=== PATIENT | female | born 1945 | race Caucasian/White ===

== ENCOUNTER 2016-06-04 06:58 | Day surgery (SDC) | payer OTHER, MEDICARE ==
[~2016-06-04] VITALS: Ht 154.9 cm; Wt 70.8 kg
[~2016-06-04 06:58] MED LIST: ADVAIR HFA120 INHALA IH; AMOX TR-K CLV1 EAC4 PO; ANCEF,KEFZ1 GM/50 ML IV; ANCEF,KEFZ2 GM/100 M IV; APRESOLINE100 MG PO; APRESOLINE50 MG PO; ASPIR 8181 M1 PO; ASPIRIN325 MG; ASPIRIN81 M1 PO; ASPIRIN81 M2 PO; AUGMENTIN875 MG PO; BISAC-EVAC10 MG PR; CALCITRIOL0.25 MC1 PO; CALCITRIOL0.25 MCG PO; CARAFATE1 GM PO; CARVEDILOL12.5 MG PO; CARVEDILOL3.125 MG PO; CATAPRES0.1 MG PO; CATAPRES0.2 MG PO; CEFTIN500 MG PO; CEFUROXIME500 MG PO; CIPROFLOXACIN500 M1 PO; CLONIDINE HCL0.1 MG PO; CLONIDINE HCL0.2 MG PO; CLOPIDOGREL75 MG PO; COLACE100 MG PO; DAILY VITAMIN1 EAC4 PO; DILAUDID2 MG PO; DOCUSATE SODIU100 MG PO; ENDOCET 5-3251 EACH PO; EPOGEN,PRO10000 UNIT IV; Ecotrin PO; FAMOTIDINE20 MG PO; FERROUS SULFAT325 MG PO; FLAGYL500 MG PO; FUROSEMIDE20 MG PO; FUROSEMIDE40 MG PO; GLIPIZIDE10 M1 PO; GLIPIZIDE10 MG PO; HUMALOG MI100 UNIT/5 SC; HUMALOG MI100 UNITS/; HUMALOG MI100 UNITS/ SC; HUMALOG100 UNIT/1 SC; HUMALOG100 UNIT/2; HUMALOG100 UNIT/2 SQ; HYDRALAZINE HCL25 MG PO; HYDRALAZINE HCL50 MG PO; HYDROCODON-ACE1 EAC7 PO; HYDROXYZINE HCL50 MG PO; IMDUR120 MG PO; IRON325 M1 PO; IRON325 MG PO; ISOSORBIDE MON120 M1 PO; KLOR-CON SPRIN10 MEQ PO; LABETALOL HCL200 MG PO; LASIX20 MG PO; LASIX40 MG PO; LEVEMIR FL100 UNIT/1 SC; LEVEMIR FL100 UNIT/1 SQ; LEVEMIR FL100 UNITS/ SC; LISINOPRIL40 MG PO; LISINOPRIL5 MG PO; LO-DOSE ASPIRIN81 M1 PO; LOPRESSOR25 MG PO; LOPRESSOR50 MG PO; LOW DOSE ASPIRI81 M1 PO; Lasix PO; Levaquin PO; Lopressor PO; MAG-OXIDE400 MG PO; MAGNESIUM250 MG PO; MAGNESIUM400 M1 PO; METOPROLOL TAR100 MG; METOPROLOL TART25 MG PO; MORPHINE S10 MG/5 ML PO; NIFEDIPINE ER60 MG PO; NIFEDIPINE ER90 MG PO; NITROGLYCERIN0.4 MG SL; NITROSTAT0.4 MG SL; NORVASC10 MG; NOVOLOG 10100 UNITS/ SC; NOVOLOG PE100 UNITS/ SC; ONDANSETRON HCL4 MG PO; OXYBUTYNIN CHLOR5 MG PO; OXYCODONE HCL5 MG PO; OXYCODONE-ACET1 EACH PO; PANTOPRAZOLE SO40 MG PO; PLAVIX75 MG PO; POLYETHYLENE GL17 GM PO; POTASSIUM CHLO10 ME3 PO; PRAVACHOL40 MG PO; PRAVACHOL80 MG; PRAVACHOL80 MG PO; PRAVASTATIN SOD40 MG PO; PREDNISONE5 MG PO; PRINIVIL10 MG; PROAIR HFA8.5 GM IH; PROCRIT10000 UNI1 IV; PROCRIT10000 UNI1 SC; PROMETHAZINE HC25 M1 PO; PROTONIX40 MG PO; REGLAN10 MG PO; RENA-VITE RX T1 EACH PO; RENVELA800 MG PO; ROCALTROL0.25 MCG PO; ROCALTROL0.5 MCG; ROXICODONE5 MG PO; Rocaltrol PO; SENSIPAR30 MG PO; SODIUM BICARBO325 MG PO; ST. JOSEPH ASPI81 MG PO; STOOL SOFTENER100 MG PO; TYLENOL REGULA325 MG PO; TYLENOL325 M1; VANCOMYCIN HCL125 MG PO; VENTOLIN HFA18 GM IH; VITAMIN D2000 INTUN PO; VITAMIN D2000 UNI1 PO; VITAMIN D2000 UNIT PO; VITAMIN D22000 UNIT PO; VITAMIN D32000 UNI1 PO; VOLTAREN 1% GE100 GM TP; Vancocin Oral Solution PO; ZESTRIL40 MG PO; ZOFRAN ODT4 MG PO; ZYVOX600 MG PO
[2016-06-04] MEDS ORDERED: PROMETHAZINE HC25 M1 PO (07:21)
[2016-06-04] MEDS ORDERED: VITAMIN D31000 UNI2 PO (07:26)
[2016-06-04 07:55] LABS: POINT-OF-CARE METER ID UU13113696
== END 2016-06-04 10:16 | disposition home or self-care (01) ==
LOC: CATH 06:58
PROVIDERS: Surgery
DX: T82.858A Stenosis of other vascular prosthetic devices, implants and grafts, initial encounter (principal); Y83.2 Surgical operation with anastomosis, bypass or graft as the cause of abnormal reaction of the patient, or of later complication, without mention of misadventure at the time of the procedure; I12.0 Hypertensive chronic kidney disease with stage 5 chronic kidney disease or end stage renal disease; E11.22 Type 2 diabetes mellitus with diabetic chronic kidney disease; N18.6 End stage renal disease; Z99.2 Dependence on renal dialysis; E78.5 Hyperlipidemia, unspecified; K21.9 Gastro-esophageal reflux disease without esophagitis; Z86.73 Personal history of transient ischemic attack (TIA), and cerebral infarction without residual deficits; Z85.528 Personal history of other malignant neoplasm of kidney; Z98.61 Coronary angioplasty status; Z79.82 Long term (current) use of aspirin; Z79.4 Long term (current) use of insulin; E66.9 Obesity, unspecified; Z68.29 Body mass index [BMI] 29.0-29.9, adult; Z99.3 Dependence on wheelchair; Z88.2 Allergy status to sulfonamides; Z83.3 Family history of diabetes mellitus; Z82.49 Family history of ischemic heart disease and other diseases of the circulatory system; Z84.1 Family history of disorders of kidney and ureter; Z87.891 Personal history of nicotine dependence
CPT/HCPCS: 82948; C1725; C1769; C1894; J1644; J2250; J3010; S0020

== ENCOUNTER 2016-09-01 10:03 | Emergency (ER) | payer OTHER, MEDICARE ==
[~2016-09-01] VITALS: Ht 154.9 cm; Wt 72.6 kg
[~2016-09-01 10:03] MED LIST changes: +VITAMIN D31000 UNI2 PO
[2016-09-01 10:48] LABS: EOSINOPHIL (%) 1.6 % (0-5); EOSINOPHIL COUNT 0.2 K/uL (0-0.3); HEMATOCRIT 34.3 % (36.0-46.0); IMMATURE GRANULOCYTE COUNT 0.1 K/uL; INSTRUMENT ABS NEUTROPHIL CT 7.2 K/uL; LYMPHOCYTE COUNT 1.6 K/uL (1.0-2.8); MCH 31.3 PG (29.0-34.0); MCHC 32.4 G/DL (30.0-36.0); MCV 96.6 FL (83-99); MEAN PLAT.VOLUME 11.3 uM^3 (9.5-12.4); MONOCYTE (%) 8.7 % (3-12); MONOCYTE COUNT 0.9 K/uL (0-0.8); NEUTROPHIL (%) 72.2 % (45-76); NEUTROPHIL COUNT 7.2 K/uL (1.8-6.4); PLATELET COUNT 178 K/uL (156-360); RBC DIS.WIDTH-CV 13.6 % (11.8-14.6); RBC DIS.WIDTH-SD 48.4 % (39-53); RED BLOOD COUNT 3.55 M/uL (3.80-5.20)
[2016-09-01 10:59] LABS: CHLORIDE 102 mEq/L (99-109); SODIUM 141 mEq/L (136-147)
[2016-09-01 11:01] LABS: GLUCOSE 173 mg/dL (70-99)
[2016-09-01 11:03] LABS: ANION GAP 15 MEQ/L (2-14); TOTAL BILIRUBIN 0.5 mg/dL (0.0-1.0)
[2016-09-01 11:05] LABS: ALKALINE PHOSPHATASE 208 IU/L (3-129); GFR ESTIMATE (CALCULATED) 10 mL/min/
[2016-09-01 11:06] LABS: UREA NITROGEN (BUN) 56 mg/dL (9-23)
[2016-09-01] MEDS ORDERED: MEDROL DOSEPAK4 MG PO (12:31)
[2016-09-01] MEDS ORDERED: REGLAN10 MG PO (12:31)
[2016-09-01] MEDS ORDERED: FIORICET,ESG1 TABLET PO (12:31)
[2016-09-01 15:11] LABS: POINT-OF-CARE METER ID UU14100415
[2016-09-01 17:05] VITALS: BP 133/74
== END 2016-09-01 17:06 | disposition home or self-care (01) ==
LOC: EME 10:03
PROVIDERS: Emergency Medicine
DX: R51 Headache (principal); R11.2 Nausea with vomiting, unspecified; E11.22 Type 2 diabetes mellitus with diabetic chronic kidney disease; I12.0 Hypertensive chronic kidney disease with stage 5 chronic kidney disease or end stage renal disease; N18.6 End stage renal disease; Z99.2 Dependence on renal dialysis; E78.5 Hyperlipidemia, unspecified; Z86.73 Personal history of transient ischemic attack (TIA), and cerebral infarction without residual deficits; Z79.02 Long term (current) use of antithrombotics/antiplatelets; Z79.82 Long term (current) use of aspirin; Z79.4 Long term (current) use of insulin; Z87.891 Personal history of nicotine dependence
CPT/HCPCS: 70450; 80053; 82948; 85025; 99281; 99285; J1100; J1170; J2270; J2405; J2765; J7050

== ENCOUNTER 2016-12-08 15:38 | Emergency (ER) | payer OTHER, MEDICARE ==
[~2016-12-08] VITALS: Ht 154.9 cm; Wt 72.7 kg
[~2016-12-08 15:38] MED LIST changes: +FIORICET,ESG1 TABLET PO; +MEDROL DOSEPAK4 MG PO
[2016-12-08 17:47] LABS: HEMATOCRIT 39.3 % (36.0-46.0); MCH 31.3 PG (29.0-34.0); MCHC 31.8 G/DL (30.0-36.0); MCV 98.3 FL (83-99); MEAN PLAT.VOLUME 11.7 uM^3 (9.5-12.4); PLATELET COUNT 184 K/uL (156-360); RBC DIS.WIDTH-CV 14.5 % (11.8-14.6); RBC DIS.WIDTH-SD 52.5 % (39-53); WHITE BLOOD COUNT 9.9 K/uL (4.1-10.2)
[2016-12-08 17:58] LABS: CHLORIDE 102 mEq/L (99-109); POTASSIUM 4.1 mEq/L (3.7-5.4); SODIUM 141 mEq/L (136-147)
[2016-12-08 18:00] LABS: GLUCOSE 156 mg/dL (70-99)
[2016-12-08 18:01] LABS: ANION GAP 12 MEQ/L (2-14)
[2016-12-08 18:02] LABS: TOTAL BILIRUBIN 0.6 mg/dL (0.0-1.0)
[2016-12-08 18:04] LABS: ALKALINE PHOSPHATASE 148 IU/L (3-129); GFR ESTIMATE (CALCULATED) 9 mL/min/
[2016-12-08 18:05] LABS: UREA NITROGEN (BUN) 42 mg/dL (9-23)
[2016-12-08] MEDS ORDERED: ZOFRAN ODT4 MG PO (18:23)
[2016-12-08 20:30] VITALS: BP 180/56
== END 2016-12-08 20:45 | disposition home or self-care (01) ==
LOC: EME 15:38
PROVIDERS: Nurse Practitioner Family
DX: R11.2 Nausea with vomiting, unspecified (principal); Z87.442 Personal history of urinary calculi; Z86.73 Personal history of transient ischemic attack (TIA), and cerebral infarction without residual deficits; I25.2 Old myocardial infarction; E78.5 Hyperlipidemia, unspecified; E11.9 Type 2 diabetes mellitus without complications; Z99.2 Dependence on renal dialysis; Z79.4 Long term (current) use of insulin; I50.9 Heart failure, unspecified; Z87.891 Personal history of nicotine dependence; Z79.82 Long term (current) use of aspirin
CPT/HCPCS: 71020; 80053; 85027; 93005; 99281; 99284

== ENCOUNTER → 2016-12-24 | Outpatient (CLI) | payer OTHER, MEDICARE ==
[~2016-12-24] VITALS: Ht 154.9 cm; Wt 68.0 kg
[2016-12-24 14:46] LABS: HEMATOCRIT 37.8 % (36.0-46.0); MCV 96.9 FL (83-99)
[2016-12-24 14:51] LABS: POINT-OF-CARE METER ID UU14107333
[2016-12-24 15:01] LABS: ANION GAP 13 MEQ/L (2-14); CHLORIDE 99 MEQ/L (99-109); POTASSIUM 3.6 MEQ/L (3.7-5.4); SAMPLE HEMOLYSIS CHECK 0; SAMPLE ICTERIC CHECK 0; SAMPLE LIPEMIA CHECK 0; SODIUM 141 MEQ/L (136-147)
[2016-12-24 15:07] LABS: GFR ESTIMATE (CALCULATED) 12 mL/min/; GLUCOSE 155 mg/dL (70-99); UREA NITROGEN (BUN) 21 mg/dL (9-23)
== END | disposition home or self-care (01) ==
LOC: AMB 12-20 14:00 → OPR 12-20 15:30 → AMB 14:00
PROVIDERS: Specialist
PROC: 0DB68ZX Excision of Stomach, Via Natural or Artificial Opening Endoscopic, Diagnostic (ICD-10-PCS; principal; 2016-12-24)
DX: K29.70 Gastritis, unspecified, without bleeding (principal); E11.22 Type 2 diabetes mellitus with diabetic chronic kidney disease; N18.6 End stage renal disease; Z99.2 Dependence on renal dialysis; I25.10 Atherosclerotic heart disease of native coronary artery without angina pectoris; I25.2 Old myocardial infarction; I69.354 Hemiplegia and hemiparesis following cerebral infarction affecting left non-dominant side; Z95.5 Presence of coronary angioplasty implant and graft; Z79.82 Long term (current) use of aspirin; Z79.4 Long term (current) use of insulin
CPT/HCPCS: 80048; 82948; 85014; 85018; 88305; 88342 TC

== ENCOUNTER → 2017-01-21 | Outpatient (CLI) | payer OTHER, MEDICARE | END | disposition home or self-care (01) | LOC: NUC 12:02 | DX: R10.31 Right lower quadrant pain (principal); R10.11 Right upper quadrant pain | CPT/HCPCS: 78226; A9537 ==

== ENCOUNTER → 2017-02-11 | Outpatient (CLI) | payer OTHER, MEDICARE | END | disposition home or self-care (01) | LOC: RAD 02-07 09:00 | DX: K44.9 Diaphragmatic hernia without obstruction or gangrene (principal); K80.50 Calculus of bile duct without cholangitis or cholecystitis without obstruction | CPT/HCPCS: 74241 ==

== ENCOUNTER → 2017-02-18 | Outpatient (CLI) | payer OTHER, MEDICARE | END | disposition home or self-care (01) | LOC: NUC 02-12 08:30 | DX: R10.11 Right upper quadrant pain (principal); K80.50 Calculus of bile duct without cholangitis or cholecystitis without obstruction | CPT/HCPCS: 78264; A9541 ==

== ENCOUNTER 2017-02-23 13:20 | Observation (INO) | payer OTHER, MEDICARE ==
[~2017-02-23] VITALS: Ht 154.9 cm; Wt 71.9 kg
[2017-02-23 15:18] LABS: BASOPHIL COUNT 0.1 K/uL (0-0.1); EOSINOPHIL (%) 1.5 % (0-5); EOSINOPHIL COUNT 0.1 K/uL (0-0.3); HEMATOCRIT 33.4 % (36.0-46.0); IMMATURE GRANULOCYTE (%) 1.5 % (0.0-0.7); IMMATURE GRANULOCYTE COUNT 0.1 K/uL; INSTRUMENT ABS NEUTROPHIL CT 6.5 K/uL; LYMPHOCYTE COUNT 1.7 K/uL (1.0-2.8); MCH 31.3 PG (29.0-34.0); MCHC 32.6 G/DL (30.0-36.0); MEAN PLAT.VOLUME 11.5 uM^3 (9.5-12.4); MONOCYTE (%) 8.1 % (3-12); MONOCYTE COUNT 0.8 K/uL (0-0.8); NEUTROPHIL (%) 70.2 % (45-76); NEUTROPHIL COUNT 6.5 K/uL (1.8-6.4); PLATELET COUNT 181 K/uL (156-360); RBC DIS.WIDTH-CV 13.8 % (11.8-14.6); RBC DIS.WIDTH-SD 48.8 % (39-53); RED BLOOD COUNT 3.48 M/uL (3.80-5.20); WHITE BLOOD COUNT 9.3 K/uL (4.1-10.2)
[2017-02-23 15:23] LABS: CHLORIDE 96 mEq/L (99-109); POTASSIUM 4.1 mEq/L (3.7-5.4); SODIUM 135 mEq/L (136-147)
[2017-02-23 15:24] LABS: MAGNESIUM 1.9 mg/dL (1.3-2.7)
[2017-02-23 15:25] LABS: PTT 31.2 SEC (25-37)
[2017-02-23 15:25] LABS: GLUCOSE 325 mg/dL (70-99)
[2017-02-23 15:26] LABS: ANION GAP 16 MEQ/L (2-14)
[2017-02-23 15:29] LABS: GFR ESTIMATE (CALCULATED) 9 mL/min/
[2017-02-23 15:30] LABS: UREA NITROGEN (BUN) 38 mg/dL (9-23)
[2017-02-23 15:35] LABS: TROP-I INTERPRETATION NEGATIVE; TROPONIN-I 0.24 ng/mL (0.0-0.30)
[2017-02-23 20:42] LABS: TOTAL BILIRUBIN 0.3 mg/dL (0.0-1.0)
[2017-02-23 20:43] LABS: ALKALINE PHOSPHATASE 154 IU/L (3-129)
[2017-02-23 20:46] LABS: DIRECT BILIRUBIN 0.1 mg/dL (0.0-0.3)
[2017-02-23] MEDS ORDERED: SENSIPAR30 MG PO (21:32)
[2017-02-23] MEDS ORDERED: ASPIR 8181 M1 PO (21:33)
[2017-02-23] MEDS ORDERED: PRAVACHOL40 MG PO (21:33)
[2017-02-23] MEDS ORDERED: LISINOPRIL5 MG PO (21:33)
[2017-02-23] MEDS ORDERED: CARVEDILOL12.5 MG PO (21:34)
[2017-02-23] MEDS ORDERED: PROTONIX40 MG PO (21:34)
[2017-02-23] MEDS ORDERED: CLOPIDOGREL75 MG PO (21:35)
[2017-02-23] MEDS ORDERED: NITROSTAT0.4 MG SL (21:35)
[2017-02-23] MEDS ORDERED: NOVOLOG PE100 UNITS/ SC ×2 (21:38→21:51)
[2017-02-23] MEDS ORDERED: LEVEMIR FL100 UNIT/1 SC (21:38)
[2017-02-23] MEDS ORDERED: THYROID (21:40)
[2017-02-23 21:45] VITALS: BP 131/60
[2017-02-23] MEDS ORDERED: COLACE100 MG PO (21:53)
[2017-02-23] MEDS ORDERED: CATAPRES0.2 MG PO (21:53)
[2017-02-23] MEDS ORDERED: FUROSEMIDE40 MG PO (21:54)
[2017-02-23] MEDS ORDERED: PROCRIT10000 UNI1 SC (21:55)
[2017-02-23] MEDS ORDERED: NORCO 10/3251 TABLET PO (21:55)
[2017-02-23] MEDS ORDERED: RENVELA800 MG PO (21:56)
[2017-02-23 23:23] LABS: TROP-I INTERPRETATION NEGATIVE
[2017-02-24] VITALS: BP 125/78
[2017-02-24 04:39] VITALS: BP 108/53
[2017-02-24 06:41] LABS: ANION GAP 13 MEQ/L (2-14); CHLORIDE 100 MEQ/L (99-109); MAGNESIUM 1.9 mg/dl (1.3-2.7); POTASSIUM 4.3 MEQ/L (3.7-5.4); SAMPLE HEMOLYSIS CHECK 1; SAMPLE ICTERIC CHECK 0; SAMPLE LIPEMIA CHECK 0; SODIUM 140 MEQ/L (136-147); TOTAL BILIRUBIN 0.5 MG/DL (0.0-1.0)
[2017-02-24 06:46] LABS: ALKALINE PHOSPHATASE 117 IU/L (3-129); GFR ESTIMATE (CALCULATED) 8 mL/min/; UREA NITROGEN (BUN) 46 mg/dL (9-23)
[2017-02-24 06:48] LABS: TROP-I INTERPRETATION NEGATIVE; TROPONIN-I 0.17 ng/mL (0.0-0.30)
[2017-02-24 06:56] LABS: GLUCOSE 70 mg/dL (70-99)
[2017-02-24 08:19] LABS: POINT-OF-CARE METER ID UU13113831
[2017-02-24 08:36] VITALS: BP 128/58
[2017-02-24] MEDS ORDERED: PLAVIX75 MG PO (12:19)
[2017-02-24 14:50] VITALS: BP 125/57
== END 2017-02-24 17:45 | disposition home or self-care (01) ==
LOC: EME 13:20 → EDOF 19:33 → 5WEST 19:33 → ENRESERV 19:45 → 5WEST 21:28
PROVIDERS: Emergency Medicine; Hospitalist; Physician Assistant Medical
PROC: 5A1D70Z Performance of Urinary Filtration, Intermittent, Less than 6 Hours Per Day (ICD-10-PCS; principal; 2017-02-24)
DX: R07.89 Other chest pain (principal); I13.2 Hypertensive heart and chronic kidney disease with heart failure and with stage 5 chronic kidney disease, or end stage renal disease; E11.22 Type 2 diabetes mellitus with diabetic chronic kidney disease; I50.42 Chronic combined systolic (congestive) and diastolic (congestive) heart failure; N18.6 End stage renal disease; Z99.2 Dependence on renal dialysis; J44.9 Chronic obstructive pulmonary disease, unspecified; I69.354 Hemiplegia and hemiparesis following cerebral infarction affecting left non-dominant side; E11.43 Type 2 diabetes mellitus with diabetic autonomic (poly)neuropathy; E11.65 Type 2 diabetes mellitus with hyperglycemia; I25.5 Ischemic cardiomyopathy; I25.10 Atherosclerotic heart disease of native coronary artery without angina pectoris; E78.5 Hyperlipidemia, unspecified; I70.1 Atherosclerosis of renal artery; I73.9 Peripheral vascular disease, unspecified; K21.9 Gastro-esophageal reflux disease without esophagitis; Z87.442 Personal history of urinary calculi; Z95.5 Presence of coronary angioplasty implant and graft; Z87.891 Personal history of nicotine dependence; Z79.4 Long term (current) use of insulin; Z79.82 Long term (current) use of aspirin; Z95.828 Presence of other vascular implants and grafts
CPT/HCPCS: 71010; 80048; 80053; 80076; 82948; 83735; 84100; 84484; 85025; 85610; 85730; 93005; 99281; 99285; G0257; G0378; J1644; J1815; J2405; P9047; S0028

== ENCOUNTER 2017-05-15 06:57 | Day surgery (SDC) | payer OTHER, MEDICARE ==
[~2017-05-15 06:57] MED LIST changes: +NORCO 10/3251 TABLET PO; +THYROID
[2017-05-15] MEDS ORDERED: METOCLOPRAMIDE H5 MG PO (07:14)
[2017-05-15] MEDS ORDERED: ZOFRAN4 MG PO (07:15)
[2017-05-15] MEDS ORDERED: HUMALOG100 UNIT/2 SC (07:18)
[2017-05-15] MEDS ORDERED: VITAMIN D31000 UNIT PO (07:20)
== END 2017-05-15 09:00 | disposition home or self-care (01) ==
LOC: CATH 06:57 → SDC 07:30 → CATH 09:00 → SDC 09:46 → CATH 09:57
PROVIDERS: Surgery
PROC: B51W1ZZ Fluoroscopy of Dialysis Shunt/Fistula using Low Osmolar Contrast (ICD-10-PCS; principal; 2017-05-15)
PROC: 05HY33Z Insertion of Infusion Device into Upper Vein, Percutaneous Approach (ICD-10-PCS; principal; 2017-05-15)
PROC: 3E03317 Introduction of Other Thrombolytic into Peripheral Vein, Percutaneous Approach (ICD-10-PCS; principal; 2017-05-15)
PROC: 05753DZ Dilation of Right Subclavian Vein with Intraluminal Device, Percutaneous Approach (ICD-10-PCS; principal; 2017-05-15)
DX: T82.41XA Breakdown (mechanical) of vascular dialysis catheter, initial encounter (principal); I12.0 Hypertensive chronic kidney disease with stage 5 chronic kidney disease or end stage renal disease; E11.22 Type 2 diabetes mellitus with diabetic chronic kidney disease; N18.6 End stage renal disease; Z99.2 Dependence on renal dialysis; Z85.528 Personal history of other malignant neoplasm of kidney; E78.00 Pure hypercholesterolemia, unspecified; Z79.02 Long term (current) use of antithrombotics/antiplatelets; Z79.4 Long term (current) use of insulin
CPT/HCPCS: 82948; 87641; C1725; C1769; C1874; C1894; J1644; J2250; J3010

== ENCOUNTER 2017-06-17 16:56 | Inpatient (IN) | payer OTHER, MEDICARE ==
[~2017-06-17] VITALS: Ht 154.9 cm
[~2017-06-17 16:56] MED LIST changes: +HUMALOG100 UNIT/2 SC; +METOCLOPRAMIDE H5 MG PO; +VITAMIN D31000 UNIT PO; +ZOFRAN4 MG PO
[2017-06-17 17:54] LABS: BASOPHIL (%) 0.4 % (0-1); BASOPHIL COUNT 0.1 K/uL (0-0.1); EOSINOPHIL (%) 0 % (0-5); HEMATOCRIT 37.9 % (36.0-46.0); HEMOGLOBIN 12.1 G/DL (11.9-15.5); IMMATURE GRANULOCYTE (%) 0.3 % (0.0-0.7); LYMPHOCYTE COUNT 0.8 K/uL (1.0-2.8); MCH 31.8 PG (29.0-34.0); MCHC 31.9 G/DL (30.0-36.0); MCV 99.7 FL (83-99); MONOCYTE (%) 5.6 % (3-12); MONOCYTE COUNT 0.7 K/uL (0-0.8); NEUTROPHIL (%) 86.7 % (45-76); PLATELET COUNT 195 K/uL (156-360); RBC DIS.WIDTH-CV 14.8 % (11.8-14.6); RBC DIS.WIDTH-SD 53.1 % (39-53); WHITE BLOOD COUNT 11.6 K/uL (4.1-10.2)
[2017-06-17 18:05] LABS: ALBUMIN 3.8 g/dL (3.2-4.8); CHLORIDE 100 mEq/L (99-109); POTASSIUM 3.6 mEq/L (3.7-5.4); SODIUM 145 mEq/L (136-147)
[2017-06-17 18:06] LABS: MAGNESIUM 2.1 mg/dL (1.3-2.7)
[2017-06-17 18:07] LABS: GLUCOSE 216 mg/dL (70-99)
[2017-06-17 18:09] LABS: TOTAL BILIRUBIN 0.7 mg/dL (0.0-1.0)
[2017-06-17 18:11] LABS: ALKALINE PHOSPHATASE 105 IU/L (3-129); CREATININE 4.7 mg/dL (0.6-1.3); GFR ESTIMATE (CALCULATED) 10 mL/min/
[2017-06-17 18:12] LABS: UREA NITROGEN (BUN) 28 mg/dL (9-23)
[2017-06-17 18:13] LABS: AST (GOT) 17 IU/L (2-34)
[2017-06-17 18:14] LABS: ALT (GPT) 14 IU/L (3-49)
[2017-06-17 18:17] LABS: TROP-I INTERPRETATION NEGATIVE; TROPONIN-I 0.12 ng/mL (0.0-0.30)
[2017-06-17 19:52] LABS: APPEARANCE CLEAR ((CLEAR)); BILIRUBIN NEGATIVE; BLOOD NEGATIVE; COLOR AMBER ((YELLOW)); GLUCOSE (STRIP) 50; KETONES NEGATIVE; LEUKOCYTES SMALL; NITRITE NEGATIVE; PROTEIN (STRIP) >=500; SPECIFIC GRAVITY 1.015 (1.000-1.030); UROBILINOGEN 0.2 MG/DL (0.2-1.0)
[2017-06-17 20:18] LABS: BACTERIA NONE SEEN /HPF; CALCIUM OXALATE CRYSTALS 3+ /HPF; EPITHELIAL CELLS 1+ /HPF; MUCUS TRACE /LPF; RED BLOOD CELLS 0-5 /HPF (0-5); UCUL ADDED? YES; WHITE BLOOD CELLS 20-30 /HPF (0-5)
[2017-06-17 22:36] VITALS: BP 142/65
[2017-06-17 22:59] VITALS: BP 142/65
[2017-06-18 04:44] VITALS: BP 134/62
[2017-06-18 07:20] VITALS: BP 116/57
[2017-06-18 09:34] LABS: HEMATOCRIT 31.5 % (36.0-46.0); MCHC 32.1 G/DL (30.0-36.0); MCV 99.7 FL (83-99); PLATELET COUNT 170 K/uL (156-360); RBC DIS.WIDTH-SD 53.1 % (39-53); RED BLOOD COUNT 3.16 M/uL (3.80-5.20); WHITE BLOOD COUNT 9.2 K/uL (4.1-10.2)
[2017-06-18 09:41] LABS: CHLORIDE 97 mEq/L (99-109); POTASSIUM 3.6 mEq/L (3.7-5.4); SODIUM 142 mEq/L (136-147)
[2017-06-18 09:43] LABS: GLUCOSE 226 mg/dL (70-99)
[2017-06-18 09:47] LABS: CREATININE 5.3 mg/dL (0.6-1.3); GFR ESTIMATE (CALCULATED) 8 mL/min/
[2017-06-18 09:48] LABS: UREA NITROGEN (BUN) 33 mg/dL (9-23)
[2017-06-18 10:00] LABS: ALBUMIN 3.4 g/dL (3.2-4.8)
[2017-06-18 10:04] LABS: HEMOGLOBIN 10.1 G/DL (11.9-15.5)
[2017-06-18 10:06] LABS: PHOSPHORUS 4.4 mg/dL (2.5-4.9)
[2017-06-18 10:08] LABS: BASOPHIL (%) 0.4 % (0-1); EOSINOPHIL (%) 0.4 % (0-5); IMMATURE GRANULOCYTE (%) 0.3 % (0.0-0.7); LYMPHOCYTE (%) 12.8 % (15-42); LYMPHOCYTE COUNT 1.2 K/uL (1.0-2.8); MONOCYTE (%) 8.1 % (3-12); MONOCYTE COUNT 0.7 K/uL (0-0.8)
[2017-06-18 16:32] VITALS: BP 96/45
[2017-06-18 19:23] VITALS: BP 102/50
[2017-06-18 23:33] VITALS: BP 105/53
[2017-06-19] VITALS (7 sets, daily range): BP systolic 0–125; BP diastolic 0–100
[2017-06-19 06:39] LABS: HEMATOCRIT 32.5 % (36.0-46.0); MCH 31.3 PG (29.0-34.0); MCHC 30.8 G/DL (30.0-36.0); MCV 101.9 FL (83-99); PLATELET COUNT 183 K/uL (156-360); RBC DIS.WIDTH-CV 15.4 % (11.8-14.6); RBC DIS.WIDTH-SD 55.2 % (39-53); RED BLOOD COUNT 3.19 M/uL (3.80-5.20); WHITE BLOOD COUNT 9.8 K/uL (4.1-10.2)
[2017-06-19 07:20] LABS: ALBUMIN 3.5 G/DL (3.2-4.8); CHLORIDE 104 MEQ/L (99-109); GLUCOSE 183 mg/dL (70-99); PHOSPHORUS 2.8 mg/dL (2.5-4.9); SODIUM 141 MEQ/L (136-147); UREA NITROGEN (BUN) 24 mg/dL (9-23)
[2017-06-19 07:21] LABS: CREATININE 3.9 MG/DL (0.6-1.3)
[2017-06-19 07:22] LABS: GFR ESTIMATE (CALCULATED) 12 mL/min/; POTASSIUM 5.3 MEQ/L (3.7-5.4)
[2017-06-19 12:16] LABS: ALBUMIN 2.6 g/dL (3.2-4.8); CHLORIDE 102 mEq/L (99-109); POTASSIUM 5.5 mEq/L (3.7-5.4); SODIUM 147 mEq/L (136-147)
[2017-06-19 12:17] LABS: HEMOGLOBIN 8.6 G/DL (11.9-15.5); MCHC 29.7 G/DL (30.0-36.0); NRBC (%) 1.2 /100 WBC (0-0); RBC DIS.WIDTH-CV 15.5 % (11.8-14.6); RBC DIS.WIDTH-SD 59.1 % (39-53); RED BLOOD COUNT 2.69 M/uL (3.80-5.20)
[2017-06-19 12:18] LABS: MAGNESIUM 2.5 mg/dL (1.3-2.7)
[2017-06-19 12:20] LABS: GLUCOSE 319 mg/dL (70-99); TOTAL PROTEIN 4.6 g/dL (6.4-8.3)
[2017-06-19 12:22] LABS: CREATININE 4.5 mg/dL (0.6-1.3); GFR ESTIMATE (CALCULATED) 10 mL/min/
[2017-06-19 12:23] LABS: ALKALINE PHOSPHATASE 68 IU/L (3-129); PHOSPHORUS 7.5 mg/dL (2.5-4.9); UREA NITROGEN (BUN) 27 mg/dL (9-23)
[2017-06-19 12:24] LABS: AST (GOT) 679 IU/L (2-34)
[2017-06-19 12:26] LABS: ALT (GPT) 565 IU/L (3-49)
[2017-06-19 12:27] LABS: TROP-I INTERPRETATION POSITIVE
[2017-06-19 12:29] LABS: TROPONIN-I 3.51 ng/mL (0.0-0.30)
[2017-06-19 12:33] LABS: MCV 107.8 FL (83-99)
[2017-06-19 13:12] LABS: PLAT.SUFFICIENCY DECREASED
[2017-06-19 13:13] LABS: PLATELET COUNT 99 K/uL (156-360)
== END 2017-06-19 11:40 | DRG 383 ==
LOC: EME 16:56 → 4WEST 20:42 → EDOF 20:42 → 2EAST 20:42 → ENRESERV 20:44 → 2EAST 22:24 → ENRESERV 06-19 10:28 → 4WEST 06-19 10:29
PROVIDERS: Emergency Medicine; Hospitalist; Internal Medicine Critical Care Medicine; Internal Medicine Gastroenterology
DX: K25.9 Gastric ulcer, unspecified as acute or chronic, without hemorrhage or perforation (principal); K29.70 Gastritis, unspecified, without bleeding; E11.69 Type 2 diabetes mellitus with other specified complication; K31.9 Disease of stomach and duodenum, unspecified; I21.9 Acute myocardial infarction, unspecified; R57.0 Cardiogenic shock; T41.45XA Adverse effect of unspecified anesthetic, initial encounter; Z66 Do not resuscitate; N17.9 Acute kidney failure, unspecified; E87.6 Hypokalemia; E11.65 Type 2 diabetes mellitus with hyperglycemia; I13.2 Hypertensive heart and chronic kidney disease with heart failure and with stage 5 chronic kidney disease, or end stage renal disease; I50.43 Acute on chronic combined systolic (congestive) and diastolic (congestive) heart failure; E11.22 Type 2 diabetes mellitus with diabetic chronic kidney disease; N18.6 End stage renal disease; E03.9 Hypothyroidism, unspecified; K21.9 Gastro-esophageal reflux disease without esophagitis; E11.51 Type 2 diabetes mellitus with diabetic peripheral angiopathy without gangrene; E66.9 Obesity, unspecified; E78.5 Hyperlipidemia, unspecified; I45.10 Unspecified right bundle-branch block; I25.10 Atherosclerotic heart disease of native coronary artery without angina pectoris; I25.5 Ischemic cardiomyopathy; I87.8 Other specified disorders of veins; J44.9 Chronic obstructive pulmonary disease, unspecified; C44.219 Basal cell carcinoma of skin of left ear and external auricular canal; G43.909 Migraine, unspecified, not intractable, without status migrainosus; Z99.2 Dependence on renal dialysis; Z87.891 Personal history of nicotine dependence; I25.2 Old myocardial infarction; Z95.828 Presence of other vascular implants and grafts; Z68.30 Body mass index [BMI] 30.0-30.9, adult; Z95.5 Presence of coronary angioplasty implant and graft; Z88.2 Allergy status to sulfonamides; Z88.5 Allergy status to narcotic agent; Z88.7 Allergy status to serum and vaccine; Z79.02 Long term (current) use of antithrombotics/antiplatelets; Z79.82 Long term (current) use of aspirin; Z79.4 Long term (current) use of insulin; I69.352 Hemiplegia and hemiparesis following cerebral infarction affecting left dominant side
CPT/HCPCS: 71045; 74176; 76705; 80048; 80053; 80069; 81003; 82948; 83605; 83735; 84100; 84484; 85025; 85027; 85730; 87070; 87086 GA; 87205; 87502; 87641; 88305; 88342 TC; 93005; 93306; 94002; 94799; 99281; 99285; C1751; C1769; J0171; J0461; J1200; J1644; J1815; J1940; J2310; J2405; J2765; J3010; J7050